=== PATIENT | female | born 1985 | race Caucasian/White ===

== ENCOUNTER → 2016-10-21 | Outpatient (CLI) | payer OTHER ==
[~2016-10-21] MED LIST: AMOXICILLIN500 MG PO; AMOXIL500 MG PO; BENTYL10 MG PO; MACROBID100 M1 PO; PRENATAL1 TA4 PO; TRAMADOL HCL50 MG PO; ZITHROMAX250 MG PO; Zofran4 MG PO
== END | disposition home or self-care (01) ==
LOC: US 11:00
DX: I65.23 Occlusion and stenosis of bilateral carotid arteries (principal); I10 Essential (primary) hypertension; R55 Syncope and collapse; R05 Cough; R42 Dizziness and giddiness

== ENCOUNTER → 2016-10-26 | Outpatient (CLI) | payer OTHER ==
--- NOTE | ~2016-10-26 | HM ---
[place], [place] HOLTER MONITOR REPORT [id number] UNIT #: [id number] ROOM: DOCTOR: SIMONE MOREL MD BIRTHDATE: [birth year] DOS: 10/28/2016 HOLTER REPORT The patient had a 48-hour Holter monitor. The patient remained in sinus rhythm throughout the entire period. Minimum heart rate is 46, maximum is 135 and average is 73 beats per minute. The patient has no evidence of ventricular or supraventricular tachycardia. Occasional PAC. No PVC. One episode of sinus tachycardia. No pauses. Essentially, this is a normal Holter monitor. SIMONE MOREL MD CM:HOLTER:HOLTER MONITOR REPORT [id number] SIMONE MOREL MD
== END | disposition home or self-care (01) ==
LOC: CARD 09:45
DX: R55 Syncope and collapse (principal)

== ENCOUNTER → 2016-11-24 | Outpatient (CLI) | payer OTHER | END | disposition home or self-care (01) | LOC: MRI 11-18 11:00 | DX: I95.1 Orthostatic hypotension (principal); R51 Headache; R42 Dizziness and giddiness ==

== ENCOUNTER → 2017-07-28 | Outpatient (CLI) | payer OTHER | LOC: RAD 16:13 | DX: K59.00 Constipation, unspecified (principal) ==

== ENCOUNTER → 2017-11-24 | Outpatient (CLI) | payer OTHER | END | disposition home or self-care (01) | LOC: LAB 13:23 → US 13:30 | DX: N92.6 Irregular menstruation, unspecified (principal); E55.9 Vitamin D deficiency, unspecified ==